=== PATIENT | female | born 1975 | race African-American/Black ===

== ENCOUNTER 2018-06-14 09:19 | Emergency (ER) | payer MEDICAID ==
[~2018-06-14] VITALS: Ht 167.6 cm; Wt 73.0 kg
[2018-06-14 10:24] LABS: BASOPHILS % 1.5 % (0.0-2.0); HEMATOCRIT. 33.5 % (36.0-48.0); HEMOGLOBIN. 10.6 g/dL (12.0-16.0); LYMPHOCYTES % 25.6 % (20.0-50.0); MEAN CORPUSCULAR HEMOGLOBIN 25.7 pg (28.0-32.0); MEAN CORPUSCULAR VOLUME 81.1 fL (81.0-99.0); MEAN PLATELET VOLUME 7.9 fl (7.4-10.4); NEUTROPHILS % 60.9 % (40.0-76.0); PLATELET 405 x1000/uL (130-400); RED BLOOD CELL COUNT 4.14 mill/uL (4.2-5.4); RED CELL DISTRIBUTION WIDTH 19.1 % (11.6-14.6)
[2018-06-14 10:30] LABS: PARTIAL THROMBOPLASTIN TIME 26.6 sec (23.4-31.0); PROTHROMBIN TIME 10.3 sec (9.1-11.1)
[2018-06-14 10:40] LABS: CHLORIDE 105 mEq/L (98-107)
[2018-06-14] MEDS ORDERED: IOHEXOL-350 100 ML BOTTLE ONE (11:01)
[2018-06-14 13:21] LABS: T4 FREE 1.12 ng/dL (0.76-1.46)
[2018-06-14 15:09] VITALS: BP 142/82
== END 2018-06-14 15:13 | disposition home or self-care (01) ==
LOC: ER 09:38
DX: D64.9 Anemia, unspecified (principal); R07.89 Other chest pain; Z98.890 Other specified postprocedural states
CPT/HCPCS: 36415; 71045; 80053; 81025; 84439; 84443; 84481; 85025; 85610; 85730; 86850; 86900; 86901; 93005; 99284; Q9967